=== PATIENT | male | born 1970 | race Caucasian/White ===

== ENCOUNTER → 2017-09-06 | Outpatient (CLI) | payer BC ==
[2016-05-23 14:40] VITALS: BP 105/66
--- NOTE | 2017-09-07 19:56 | SLEEP ---
DATE OF STUDY: 09/06/2017 ATTENDING PHYSICIAN: Dr. Varun Barboza. The patient is 47 years old who weighs 184 pounds with a BMI of 25.7. The patient's Neville score was 14. Home sleep study was performed by [facility]. Total recording time was 413 minutes. During the night study, the patient had 1 central apnea, 236 obstructive apneas with 1 mixed apneas. There were 26 hypopneas. The patient's apnea hypopnea index was 38 per hour. Supine index 38 per hour as well. Review of nocturnal oximetry study revealed that 28 minutes were spent in oxygen saturation less than 90% with an average oxygen saturation of 92% and the lowest of 75%. Mean heart rate was 57 beats per minute. IMPRESSION: 1. Severe sleep apnea-hypopnea syndrome at an AHI of 38 per hour. 2. Nocturnal hypoxia secondary to obstructive sleep apnea. RECOMMENDATIONS: 1. The patient should return for in-lab CPAP titration study due to the severity of sleep apnea. 2. Once optimal CPAP pressure is achieved, then follow up in 4-6 weeks to assess compliance with CPAP and to document clinical improvement. 3. Weight loss is strongly advised. 4. Avoid [employer] depressants. 5. Cautioned regarding driving until symptoms of sleep apnea, resolved with CPAP. RITA MEJIA MD DR: GILDA/nts JOB#: [id number] / [id number] VARUN Banda MD MTDD
== END | disposition home or self-care (01) ==
LOC: RT 12:25
PROVIDERS: ATTEND Family Medicine
DX: G47.33 Obstructive sleep apnea (adult) (pediatric) (principal)
CPT/HCPCS: G0399

== ENCOUNTER → 2021-08-21 | Day surgery (SDC) | payer BC ==
[~2021-08-21] VITALS: Ht 175.3 cm; Wt 80.0 kg
[~2021-08-21] MED LIST: ATOR20TA58 PO; IV RINGERS,LACTATED 1000ML 1,000 ML IV SCH; OMEP40CA7 PO; PROPOFOL 10 MG/ML (20ML) VIAL. IV ONE
[2021-08-21 08:47] VITALS: BP 142/70
--- NOTE | 2021-08-21 09:48 | HP ---
ADMIT DATE: 08/21/2021 UPDATED HISTORY AND PHYSICAL REFERRING PHYSICIAN: Zack Huff MD REASON FOR CONSULTATION: Colorectal screening. HISTORY: This is a 51-year-old male with past medical history significant for hyperlipidemia, gastroesophageal reflux disease as well as sleep apnea, who is seen for screening colon exam. Bowel habits are regular without diarrhea or constipation. There has been no melena and/or hematochezia. Weight and appetite are stable. He is, otherwise, without additional complaints. PAST MEDICAL HISTORY: Hyperlipidemia and gastroesophageal reflux disease. ALLERGIES: PENICILLIN. MEDICATIONS: Include atorvastatin and omeprazole. FAMILY HISTORY: Significant for diabetes in his mother. SOCIAL HISTORY: He is a former smoker and social drinker. PAST SURGICAL HISTORY: Noncontributory. REVIEW OF SYSTEMS: Per records. PHYSICAL EXAMINATION: GENERAL: Reveals a well-nourished, well-developed male. VITAL SIGNS: Temperature is 97.1, pulse is 71, respiratory rate 20. LUNGS: Clear. CARDIOVASCULAR: Reveals an S1, S2, without S3, S4 or appreciable murmur. ABDOMEN: Reveals a soft abdomen, normal bowel sounds, without appreciable hepatosplenomegaly. EXTREMITIES: Reveals no cyanosis, clubbing or edema. IMPRESSION: Colorectal screening is warranted at this time. Risks and benefits of the test have been previously discussed with the patient, including risks of hemorrhage and perforation. He is willing to proceed. I would like to thank Dr. Huff for allowing us to consult and participate in this patient's care. REFERRING PHYSICIAN: Zack Huff MD REASON FOR CONSULTATION: Colorectal screening. HISTORY: This is a 51-year-old male with past medical history significant for hyperlipidemia, gastroesophageal reflux disease as well as sleep apnea, who is seen for screening colon exam. Bowel habits are regular without diarrhea or constipation. There has been no melena and/or hematochezia. Weight and appetite are stable. He is, otherwise, without additional complaints. PAST MEDICAL HISTORY: Hyperlipidemia and gastroesophageal reflux disease. ALLERGIES: PENICILLIN. MEDICATIONS: Include atorvastatin and omeprazole. FAMILY HISTORY: Significant for diabetes in his mother. SOCIAL HISTORY: He is a former smoker and social drinker. PAST SURGICAL HISTORY: Noncontributory. REVIEW OF SYSTEMS: Per records. PHYSICAL EXAMINATION: GENERAL: Reveals a well-nourished, well-developed male. VITAL SIGNS: Temperature is 97.1, pulse is 71, respiratory rate 20. LUNGS: Clear. CARDIOVASCULAR: Reveals an S1, S2, without S3, S4 or appreciable murmur. ABDOMEN: Reveals a soft abdomen, normal bowel sounds, without appreciable hepatosplenomegaly. EXTREMITIES: Reveals no cyanosis, clubbing or edema. IMPRESSION: Colorectal screening is warranted at this time. Risks and benefits of the test have been previously discussed with the patient, including risks of hemorrhage and perforation. He is willing to proceed. I would like to thank Dr. Hfuf for allowing us to consult and participate in this patient's care. MARTIN DR: Azalia TID: [id number] CC: ZACK HUFF MD
[2021-08-21 10:02] VITALS: BP 93/71
== END | disposition home or self-care (01) ==
LOC: ENDOS 08:19
PROVIDERS: ATTEND Internal Medicine Gastroenterology
DX: Z12.11 Encounter for screening for malignant neoplasm of colon (principal); K64.0 First degree hemorrhoids; K57.30 Diverticulosis of large intestine without perforation or abscess without bleeding; K63.89 Other specified diseases of intestine; K21.9 Gastro-esophageal reflux disease without esophagitis; E78.00 Pure hypercholesterolemia, unspecified; G47.30 Sleep apnea, unspecified; M19.90 Unspecified osteoarthritis, unspecified site; Z79.899 Other long term (current) drug therapy; Z98.890 Other specified postprocedural states; Z88.0 Allergy status to penicillin; Z88.8 Allergy status to other drugs, medicaments and biological substances; Z72.89 Other problems related to lifestyle
CPT/HCPCS: 45378; J2704